=== PATIENT | female | born 1965 | race Caucasian/White ===

== ENCOUNTER → 2018-01-07 | Outpatient (CLI) | payer BC ==
--- NOTE | 2018-01-09 11:06 | PF ---
[address] [address] PULMONARY FUNCTION REPORT Name: JOSE MARTINEZ Room: [facility]#: [id number] Admission: 01/07/18 Attend Phys: Physician not on staf Discharge: Date of : 69 Report #: [id number] THIS REPORT FOR: //name// CC: [facility] REFERRING PHYSICIAN: NASH Martinez/[facility] M.D. SPIROMETRY: The FEV1/FVC ratio was 61% predicted. The FEV1 was 1.89 liters at 73% predicted. FVC was 3.23 liters at 98% predicted with positive bronchodilator response. DLCO was 78% predicted. IMPRESSION: The above spirometry demonstrated moderate degree of obstructive pulmonary defect with normal DLCO. <ELECTRONICALLY SIGNED> By: Michael Strong MD 01/09/18 1106 [id number] Parish MD /nt
== END ==
LOC: M.PUL 09:13
DX: Z12.31 Encounter for screening mammogram for malignant neoplasm of breast (principal); N64.4 Mastodynia; J45.40 Moderate persistent asthma, uncomplicated